=== PATIENT | male | born 1975 | race Caucasian/White ===

== ENCOUNTER 2018-05-27 16:00 | Emergency (ER) | payer SELFPAY ==
[~2018-05-27] VITALS: Ht 170.2 cm; Wt 81.6 kg
[2018-05-27 16:04] VITALS: BP 148/96; Ht 170.2 cm; Wt 81.6 kg
== END 2018-05-27 16:59 | disposition home or self-care (01) ==
LOC: ED 16:00
DX: S61.512A Laceration without foreign body of left wrist, initial encounter (principal); W26.0XXA Contact with knife, initial encounter; Y93.G9 Activity, other involving cooking and grilling; Y92.89 Other specified places as the place of occurrence of the external cause; Y99.8 Other external cause status; Z88.0 Allergy status to penicillin
CPT/HCPCS: 90715

== ENCOUNTER 2018-05-29 15:40 | Emergency (ER) | payer SELFPAY ==
[~2018-05-29] VITALS: Ht 170.2 cm; Wt 81.6 kg
[2018-05-29 15:54] VITALS: BP 131/79; Ht 170.2 cm; Wt 81.6 kg
== END 2018-05-29 17:57 | disposition home or self-care (01) ==
LOC: ED 15:40
DX: S61.512A Laceration without foreign body of left wrist, initial encounter (principal); Z88.0 Allergy status to penicillin; W26.0XXD Contact with knife, subsequent encounter; Y93.89 Activity, other specified; Y92.89 Other specified places as the place of occurrence of the external cause; Y99.8 Other external cause status
CPT/HCPCS: J2001

== ENCOUNTER 2018-05-31 16:09 | Emergency (ER) | payer SELFPAY ==
[~2018-05-31] VITALS: Ht 170.2 cm; Wt 84.4 kg
[2018-05-31 16:31] VITALS: Ht 170.2 cm; Wt 84.4 kg
[2018-05-31 16:46] VITALS: BP 137/83
== END 2018-05-31 16:46 | disposition home or self-care (01) ==
LOC: ED 16:09
DX: S61.512D Laceration without foreign body of left wrist, subsequent encounter (principal); W26.0XXD Contact with knife, subsequent encounter; Z88.0 Allergy status to penicillin

== ENCOUNTER 2018-06-08 16:05 | Emergency (ER) | payer SELFPAY ==
[~2018-06-08] VITALS: Ht 172.7 cm; Wt 79.8 kg
[2018-06-08 16:09] VITALS: BP 130/86; Ht 172.7 cm; Wt 79.8 kg
== END 2018-06-08 16:37 | disposition home or self-care (01) ==
LOC: ED 16:05
DX: Z48.02 Encounter for removal of sutures (principal); Z88.0 Allergy status to penicillin; I10 Essential (primary) hypertension